=== PATIENT | male | born 1995 | race Caucasian/White ===

== ENCOUNTER 2024-04-26 14:25 | Outpatient (OUT) | payer BC, SELFPAY ==
--- NOTE | 2024-04-26 | XR_ITS ---
[address] [address] Patient Name: STEVEN LEE MRN: [id number] date: 1995 Sex: M Assigned Patient Location: Current Patient Location: Accession/Order Number: [id number] Exam Date: 04/26/2024 14:45 Report Date: 04/28/2024 07:42 At the request of: BASILIO SIMMONS Procedure: XR foot LT min 3V PROCEDURE: XR foot LT min 3V COMPARISON: None. HISTORY: LEFT FOOT PAIN FINDINGS: BONES:No acute fracture or dislocation. Mild degenerative changes with marginal osteophyte formation. SOFT TISSUES:Negative. No visible soft tissue swelling. EFFUSION:None visible. OTHER: Negative. XR/XR foot LT min 3V IMPRESSION: No acute abnormality Electronically authenticated by: ARIAN SHEPHERD Date: 04/28/2024 07:42
== END 2024-04-26 14:26 | disposition home or self-care (01) ==
LOC: EC 14:25
PROVIDERS: Visit Provider Physician Assistant
DX: M79.672 Pain in left foot (principal)
CPT/HCPCS: 73630